=== PATIENT | male | born 1940 | race African-American/Black ===

== ENCOUNTER 2024-08-31 10:50 | Emergency (ER) | payer OTHER ==
[~2024-08-31] VITALS: Ht 182.9 cm; Wt 91.0 kg
[2024-08-31 10:53] VITALS: TEMP 36.9; O2SAT 98
[2024-08-31] MEDS: ASPIRIN 81MG TABLET PO ONE (11:48)
[2024-08-31] MEDS ORDERED: TADA10TA MT (11:49)
[2024-08-31] MEDS ORDERED: GLIP-12 MT (11:51)
[2024-08-31] MEDS ORDERED: OMEP-265 MT (11:52)
[2024-08-31] MEDS ORDERED: CLOP75TA33 MT (11:52)
[2024-08-31] MEDS ORDERED: OMEP20CA14 MT (11:53)
[2024-08-31] MEDS ORDERED: ATOR40TA70 MT (11:55)
[2024-08-31] MEDS ORDERED: AMLO5TAB88 MT (11:56)
[2024-08-31] MEDS ORDERED: ASPI-1406 PO (11:57)
[2024-08-31 12:01] VITALS: BP 189/80; PULSE 67; RESP 12; O2SAT 98
[2024-08-31] MEDS: IOHEXOL-350 100 ML BOTTLE ONE (12:01)
[2024-08-31 12:03] LABS: BASOPHILS % 0.4 % (0.0-2.0); DIFFERENTIAL COMMENT 0; EOSINOPHILS % 0.6 % (0.0-5.0); HEMATOCRIT. 40.6 % (42.0-52.0); HEMOGLOBIN. 13.3 g/dL (14.0-18.0); MEAN CORPUSCULAR HGB CONC 32.8 g/dL (31.0-37.0); MEAN CORPUSCULAR VOLUME 91.5 fL (80.0-94.0); MEAN PLATELET VOLUME 9.3 fl (7.4-10.4); MONOCYTES % 5.9 % (2.0-8.0); NEUTROPHILS % 77.1 % (40.0-76.0); PLATELET 199 x1000/uL (130-400); RED BLOOD CELL COUNT 4.44 mill/uL (4.7-6.1); RED CELL DISTRIBUTION WIDTH 13.5 % (11.6-14.6); WHITE BLOOD COUNT 7.6 x1000/uL (4.5-11.0)
[2024-08-31 12:23] LABS: CARBON DIOXIDE 29 mEq/L (21-32); CHLORIDE 101 mEq/L (98-107); POTASSIUM 3.6 mEq/L (3.5-5.1); SODIUM 138 mEq/L (136-145)
[2024-08-31 12:24] LABS: CALCIUM 9.9 mg/dL (8.7-10.4)
[2024-08-31 12:27] LABS: INR 1.1; PROTHROMBIN TIME 11.4 sec (9.6-11.0)
[2024-08-31 12:29] LABS: GLUCOSE 279 mg/dL (70-105); TROPONIN I HIGH SENSITIVITY 15 ng/L (3.0-53); UREA NITROGEN BLOOD 15 mg/dL (9-23)
[2024-08-31 12:30] LABS: ALBUMIN 4.2 g/dL (3.2-4.8)
[2024-08-31 12:31] LABS: CLARITY URINE CLEAR (CLEAR); COLOR URINE YELLOW (YELLOW); GLUCOSE URINE 2+ (NEGATIVE); KETONES URINE NEGATIVE (NEGATIVE); LEUKOCYTE ESTERASE URINE NEGATIVE (NEGATIVE); NITRITE URINE NEGATIVE (NEGATIVE); OCCULT BLOOD URINE TRACE (NEGATIVE); PH URINE 7.5 (4.5-8.0); PROTEIN URINE NEGATIVE (NEGATIVE); SPECIFIC GRAVITY URINE 1.032 (1.005-1.030)
[2024-08-31 12:31] LABS: ALANINE AMINOTRANSFERASE 21 IU/L (10-49); ASPARTATE AMINOTRANSFERASE 16 IU/L (<34); BILIRUBIN DIRECT 0.2 mg/dL (<=3.0); BILIRUBIN TOTAL 0.7 mg/dL (0.1-1.0); PROTEIN TOTAL 6.4 g/dL (6.0-8.3)
[2024-08-31 12:46] LABS: BETA HYDROXYBUTYRATE < 0.1 mMol/L (0.0-0.3)
[2024-08-31 13:04] LABS: WBC URINE NONE SEEN /hpf (0-2)
[2024-08-31 13:05] LABS: BACTERIA URINE NONE SEEN; SQUAMOUS EPITHELIAL CELL URINE NONE SEEN /lpf (RARE/1+); YEAST URINE 1+
== END 2024-08-31 12:49 | disposition left against medical advice (07) ==
LOC: ER 10:50
DX: R47.01 Aphasia (principal); R29.810 Facial weakness; Z79.899 Other long term (current) drug therapy; Z86.73 Personal history of transient ischemic attack (TIA), and cerebral infarction without residual deficits
CPT/HCPCS: 99291; 70496; 71045; 80076; 80048; 81003; 82010; 82962; 85025; 85610; 84484; 36415; 70498; 70450; 93005; Q9967